=== PATIENT | female | born 1980 | race Asian ===

== ENCOUNTER 2017-11-11 08:01 | Emergency (ER) | payer OTHER ==
[2017-11-11 08:09] VITALS: BP 105/71; PULSE 74; RESP 16; TEMP 97.5; O2SAT 99
--- NOTE | 2017-11-11 09:04 | EDPHY ---
H & P Stated Complaint: Started period today; menstrual cramps alleviated w/IBU Time Seen by Provider: 11/11/17 08:57 - Personal History LMP (Females 10-55): Now Current Tetanus Diphtheria and Acellular Pertussis (TDAP): Yes - Medical/Surgical History Other PMH: HTN - Social History Smoking Status: Never smoked Constitutional: Initial Vital Signs Temperature (C) 36.4 C 11/11/17 08:03 Heart Rate 74 11/11/17 08:03 Respiratory Rate 16 11/11/17 08:03 Blood Pressure 105/71 11/11/17 08:03 O2 Sat (%) 99 11/11/17 08:03 O2 Delivery Mode Room Air Allergies/Adverse Reactions: No Known Allergies Allergy (Unverified 11/11/17 08:06) Home Medications: Medication Instructions Recorded Lisinopril [Zestril 5 mg (*)] 5 mg PO 11/11/17 Medical Decision Making ED Course/Re-evaluation: CHIEF COMPLAINT: Menstrual cramps HISTORY OF PRESENT ILLNESS: The patient was had severe menstrual cramps which are usual for her. She called EMS. She took some ibuprofen and by the time she arrived all her cramps were gone. She does not want any further evaluation. REVIEW OF SYSTEMS: A 10 point review of systems was performed and is negative with the exception of the elements mentioned in the history of present illness. PHYSICAL EXAM: HR, BP, O2 Sat, RR. Temp noted General Appearance: Alert, well hydrated, appropriate, and non-toxic appearing. Head: Atraumatic without scalp tenderness or obvious injury Eyes: Pupils equal, round, reactive to light and accommodation, EOMI, no trauma , no injection. Ears: Clear bilaterally, no perforation, normal landmarks Nose: Atraumatic, no rhinorrhea, clear. Throat: There is no erythema or exudates, no lesions, normal tonsils, mucus membranes moist. Neck: Supple, 2+ carotid upstroke, nontender, no lymphadenopathy. Respiratory: No retractions, no distress, no wheezes, and no accessory muscle use. Lungs are clear to auscultation bilaterally. Cardiovascular: Regular rate and rhythm, no murmurs, rubs, or gallops. Bilateral carotid, radial, dorsalis pedis, and posterior tibial pulses intact. Good capillary refill all extremities. Gastrointestinal: Abdomen is soft, nontender, non-distended, no masses, no rebound, no guarding, no peritoneal signs. Musculoskeletal: Normal active ROM of all extremities, atraumatic. Neurological: Alert, appropriate, and interactive. The patient has normal DTRs and non-focal cranial nerves, motor, sensory, and cerebellar exam. Skin: No rashes, good turgor, no nodules on palpation. Past medical history: None except for severe menstrual cramping Past surgical history: None Family history: Noncontributory Social history: , employed, does not abuse tobacco drugs or alcohol DIFFERENTIAL DIAGNOSIS: The differential diagnosis for the patient's abdominal pain included but was not limited to ovarian cyst, pelvic inflammatory disease, ovarian torsion, urinary tract infection, ectopic , cholecystitis, and appendicitis. MEDICAL DECISION MAKING: This patient has a history of recurrence severe menstrual cramps she has more menstrual cramps today was resolved with ibuprofen and she would like to go home at this point. Departure - Departure Disposition: Home, Routine, Self-Care Clinical Impression: Menstrual cramps Condition: Good Instructions: Dysmenorrhea (ED) Referrals: NONE *PRIMARY CARE P,. [Primary Care Provider] - As per Instructions
== END 2017-11-11 09:07 | disposition home or self-care (01) ==
DX: N94.6 Dysmenorrhea, unspecified (principal); I10 Essential (primary) hypertension